=== PATIENT | female | born 1975 | race Caucasian/White ===

== ENCOUNTER 2024-03-10 07:25 | Emergency (ER) | payer MEDICAID ==
[~2024-03-10] VITALS: Ht 160 cm; Wt 57.5 kg
[2024-03-10 08:32] VITALS: BP 122/63; PULSE 92; RESP 18; TEMP 99.5; O2SAT 95
[2024-03-10] MEDS ORDERED: METH4PAK PO (09:00)
[2024-03-10] MEDS ORDERED: PENI500T2 PO (09:00)
[2024-03-10] MEDS ORDERED: IBUP1TAB5 PO (09:00)
== END 2024-03-10 09:00 | disposition home or self-care (01) ==
LOC: ER 07:25
DX: J02.9 Acute pharyngitis, unspecified (principal); Z90.49 Acquired absence of other specified parts of digestive tract; Z90.710 Acquired absence of both cervix and uterus; Z87.891 Personal history of nicotine dependence; Z88.6 Allergy status to analgesic agent

== ENCOUNTER 2025-01-11 09:19 | Inpatient (IN) | payer MEDICAID ==
[~2025-01-11] VITALS: Ht 160 cm; Wt 64.3 kg
[~2025-01-11 09:19] MED LIST: METH4PAK PO; PENI500T2 PO
[2025-01-11] MEDS: SODIUM CHLORIDE 0.9% 1,000 ML IV ONE ×2 (10:00→15:45)
--- NOTE | 2025-01-11 10:15 | ED.PDOC ---
GI ASSESSMENT HPI Comments 49 y/o F, presents to the ED for CC of constipation. Patient states, she has been experiencing symptoms of constipation with associated abdominal pain onset, last night (01/10/25). Patient reports, that she was scheduled to have a colonoscopy today (01/11/25) and started drinking Go-Yenny last night (01/10/25) and has yet to have bowel movement. Patient denies nausea, vomiting, fever, chills, or body aches. No other symptoms or modifying factors present at this time. Chief Complaint: Constipation Time Seen by MD: 10:00 Primary Care Provider: Ap Reviewed Notes: Nurses Notes, Medications, Allergies Allergies: Coded Allergies: Ibuprofen (Verified Allergy, Unknown, 12/12/23) Morphine (Verified Allergy, Unknown, 12/12/23) Home Meds Active Scripts Methylprednisolone (Medrol Dosepak) 4 Mg Riaz, 4 MG PO UD for 7 Days, #21 TAB 0 Refills UAD Prov:GROVER MONTENEGRO MOLTEN IRON POURER 03/10/24 Penicillin V Potassium (Veetids) 500 Mg Tab, 1 TAB PO BID for 10 Days, #20 TAB 0 Refills Prov:GROVER MONTENEGRO MOLTEN IRON POURER 03/10/24 Information Source: Patient Mode of Arrival: Ambulatory Timing: Hours Duration: Since onset Prehospital treatment: None Quality: None Vomitus: None Stool: Impaction Severity: Moderate Recent: None Recent Hx of: None Pain Location: Diffuse Modifying Factors: Nothing Associated sign and symptoms: Abdominal Pain Past Medical History PAST MEDICAL HISTORY: Seizures Surgical History: Cholecystectomy, Hysterectomy 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: 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 all KILN MECHANIC Hx Family History Family History: Reviewed,noncontributory to illness, Family hx of Cancer Family History (Other): Crohn's Disease Social History Smoker: Quit Greater Than 1 Year, Cigarettes Alcohol: Denies ETOH Use Drugs: Denies Drug Use Lives In: Home Constitutional: denies: chills, diaphoresis, fatigue, fever, malaise, sweats, weakness, others EENTM: denies: blurred vision, double vision, ear bleeding, ear discharge, ear drainage, ear pain, ear ringing, eye pain, eye redness, hearing loss, mouth pain, mouth swelling, nasal discharge, nose bleeding, nose congestion, nose pain, photophobia, tearing, throat pain, throat swelling, voice changes, others Respiratory: denies: cough, hemoptysis, orthopnea, SOB at rest, shortness of breath, SOB with excertion, stridor, wheezing, others Cardiovascular: denies: chest pain, dizzy spells, diaphoresis, Dyspnea on exertion, edema, irregular heart beat, left arm pain, lightheadedness, palpitations, PND, syncope, others Gastrointestinal: reports: abdominal pain, constipated; denies: abdomen distended, blood streaked bowels, diarrhea, dysphagia, difficulty swallowing, hematemesis, melena, nausea, poor appetite, poor fluid intake, rectal bleeding, rectal pain, vomiting, others Genitourinary: denies: abnormal vagina bleeding, burning, dyspareunia, dysuria, flank pain, frequency, hematuria, incontinence, pain, , vagina discharge, urgency, others Neurological: denies: dizziness, fainting, headache, left sided numbness, left sided weakness, numbness, paresthesia, pre-existing deficit, right sided numbness, right sided weakness, seizure, speech problems, tingling, tremors, weakness, others Musculoskeletal: denies: back pain, gout, joint pain, joint swelling, muscle pain, muscle stiffness, neck pain, others Integumetry: denies: bruises, change in color, change in hair/nails, dryness, laceration, lesions, lumps, rash, wounds, others Allergic/Immunocompromised: denies: Difficulty Healing, Frequent Infections, Hives, Itching, others Hematologic/Lymphatic: denies: anemia, blood clots, easy bleeding, easy bruising, swollen glands, others Endocrine: denies: excessive hunger, excessive sweating, excessive thirst, excessive urination, flushing, intolerance to cold, intolerance to heat, unexplained weight gain, unexplained weight loss, others Psychiatric: denies: anxiety, bipolar disorder, depression, hopeless, panic disorder, schizophrenia, sleepless, suicidal, others All Other Systems: Reviewed and Negative Physical Exam General Appearance: Moderate Distress HEENT: Normal ENT Inspection, Pharynx Normal, TMs Normal Neck: Full Range of Motion, Non-Tender, Normal, Normal Inspection Respiratory: Chest Non-Tender, Lungs Clear, No Accessory Muscle Use, No Respi ratory Distress, Normal Breath Sounds Cardiovascular: No Edema, No JVD, No Murmur, No Gallop, Normal Peripheral Pulses, Regular Rate/Rhythm Breast Exam: Deferred Gastrointestinal: Diffuse, No Organomegaly, No Pulsatile Mass, Normal Bowel Sounds, Soft Genitalia: Deferred Pelvic: Deferred Rectal: Deferred Extremities: No calf tenderness, Normal capillary refill, Normal inspection, Normal range of motion, Non-tender, No pedal edema Musculoskeletal : Apperance: Normal 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 Was a procedure done?: No GI differential Dx Differential Diagnosis: Constipation, Diverticular disease, Esophagitis, Gastritis/PUD, Gastroenteritis X-Ray, Labs, Meds, VS Vital Signs Date Time Temp Pulse Resp B/P (MAP) Pulse Ox O2 Delivery O2 Flow Rate FiO2 01/11/25 14:04 70 18 119/57 (77) 100 01/11/25 10:17 61 18 98 Room Air 01/11/25 10:17 98.0 61 18 125/61 (82) 98 98.0 01/11/25 09:35 98.3 70 19 119/67 (84) 96 98.3 Lab Test 01/11/25 13:50 01/11/25 10:10 Range/Units Urine Color Light-yellow Yellow Urine Clarity Clear Clear Urine pH 6.0 5.0-9.0 Urine Specific [place] 1.016 1.001-1.035 Urine Protein Negative Negative Urine Ketones Negative Negative Urine Blood Negative Negative /uL Urine Nitrite Negative Negative Urine Bilirubin Negative Negative Urine Urobilinogen Normal Negative mg/dL Urine Leukocyte Esterase Negative Negative /uL Urine RBC <1 0 - 4 /hpf Urine Microscopic WBC < 1 0-5 /HPF Urine Squamous Epithelial Cells None seen <5 /hpf Urine Bacteria None seen None Seen /hpf Urine Glucose Normal Normal mg/dL White Blood Count 5.8 4.4-10.8 10^3/uL Red Blood Count 4.46 4.0-5.20 10^6/uL Hemoglobin 14.6 12.2-16.2 g/dL Hematocrit 42.0 36.0-46.0 % Mean Corpuscular Volume 94.2 80.0-100.0 fL Mean Corpuscular Hemoglobin 32.7 H 28.0-32.0 pg Mean Corpuscular Hemoglobin Concent 34.7 32.0-36.0 g/dL Red Cell Distribution Width 12.6 11.8-14.3 % Platelet Count 242 140-450 10^3/uL Mean Platelet Volume 8.9 6.9-10.8 fL Neutrophils (%) (Auto) 57.3 37.0-80.0 % Lymphocytes (%) (Auto) 33.2 10.0-50.0 % Monocytes (%) (Auto) 7.4 0.0-12.0 % Eosinophils (%) (Auto) 1.7 0.0-7.0 % Basophils (%) (Auto) 0.4 0.0-2.0 % Neutrophils # (Auto) 3.3 1.6-8.6 10 ^3/uL Lymphocytes # (Auto) 1.9 0.4-5.4 10 ^3/uL Monocytes # (Auto) 0.4 0-1.3 10 ^3/uL Eosinophils # (Auto) 0.1 0-0.8 10 ^3/uL Basophils # (Auto) 0 0-0.2 10 ^3/uL Nucleated Red Blood Cells 0.1 % Sodium Level 142 136-145 mmol/L Potassium Level 4.7 3.5-5.1 mmol/L Chloride Level 108 H 98-107 mmol/L Carbon Dioxide Level 26 20-31 mmol/L Anion Gap 8 5-15 Blood Urea Nitrogen 14 9-23 mg/dL Creatinine 1.05 H 0.550-1.02 mg/dL Glomerular Filtration Rate Calc 66 >90 mL/min BUN/Creatinine Ratio 13.3 10.0-20.0 Serum Glucose 81 74-106 mg/dL Calcium Level 11.6 H 8.7-10.4 mg/dL Current Medications Medications (Trade) Dose Ordered Sig/Mustapha Route Start Time Stop Time Status Last Admin Sodium Chloride 1,000 ml @ 1,000 mls/hr Q1H ONCE IV 01/11/25 10:00 01/11/25 10:59 DC 01/11/25 10:[address] [address] Ph: [phone] DIAGNOSTIC IMAGING Diagnostic Imaging Report : [id number] Signed PATIENT: UVALDO STERLING DIANEACCT: [id number] UNIT: [id number] : 1975 LOC: ER ROOM / BED: / AGE / SEX: 49 / F ADM STATUS: REG ER SERVICE 1000 ORDERING PHYSICIAN: FRANCINE CASTILLO MD PROCEDURE(s): ABPL - CT AB PEL WO CON-NO ORAL OR IV REASON: constipation ORDER NUMBER(s): [id number], ACCESSION NUMBER(s): [id number] Exam: CT CT AB PEL WO CON-NO ORAL OR IV History: constipation Comparison Study: None Technique: Multidetector spiral CT of the abdomen and pelvis was performed from lung bases to pubic symphysis. Imaging was performed without IV contrast. Axial, coronal and sagittal multiplanar reformats were obtained from the axial data set by the technologist. Radiation dose : Abdomen/Pelvis: CTDIvol 6.77 mGy, DLP 344.35 mGy*cm. Findings: Evaluation of solid organs is limited due to lack of intravenous contrast use. Lung Bases: Extensive cystic changes in the lung bases. Liver: Subcentimeter fatty lesions in the liver. Gallbladder and biliary Tree: Gallbladder is surgically absent. Spleen: Calcified granuloma. Pancreas: The pancreas is grossly normal in appearance. Adrenal Glands: Unremarkable Kidneys: Numerous fatty masses replacing most of both kidneys right greater than left consistent with angiomyolipoma. Largest masses an exophytic mass projecting off the lower pole of the left kidney measuring up to 78 mm. Some likely hyperdense renal cysts greater in the left kidney. No hydronephrosis. Bladder: Grossly unremarkable for degree of distention. Bowel: The stomach is grossly normal in appearance. Small bowel and colon are normal in caliber and distribution. Normal appendix is visualized in the right lower quadrant without findings of appendicitis. Ascites: Absent Lymphadenopathy: No mesenteric, retroperitoneal or periportal lymphadenopathy. Abdominal wall and Mesentery: Unremarkable. Vasculature: The visualized abdominal aorta is normal in size and caliber. Eval uation of abdominal and pelvic vessels is limited due to lack of intravenous contrast. Pelvic Organs: Unremarkable Musculoskeletal: No aggressive focal bony lesions, acute fractures or dislocation. IMPRESSION: 1. Extensive cystic changes in the lung bases. Numerous bilateral renal angiomyolipoma. Largest renal mass is exophytic off the left lower pole measuring up to 78 mm. 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 Clinical correlation and continued follow-up is recommended. Consider surgical resection of the largest mass due to risk of hemorrhage. 2. Likely hyperdense renal cysts greater in the left kidney. Consider further evaluation with MRI of the abdomen with contrast. 3. Subcentimeter fatty lesions in the liver, likely benign. Could also be further evaluated on MRI of the abdomen with contrast. Radiation optimization: All CT scans at this facility use at least one of these dose optimization techniques: Automated exposure control mA and/or kV adjustment per patient size (includes targeted exams where dose is matched to clinical indication) or iterative reconstruction. HS:Y ATED BY: JAH ODONNELL MD DICTATED DATE/TIME: 01/11/25 1140 SIGNED BY: AJH ODONNELL MD SIGNED DATE/TIME: 01/11/25 1140 CC: Patient alert. Complaining of abdominal pain. She has been taking GoLYTELY to have a colonoscopy done today. Vitals stable. Unable to get her scope because of severe abdominal pain unable to have any bowel movement. She does have a history of GI dysfunction. WBC within normal limits. Hemoglobin within normal limits. Establish intravenous access. Was given fluids. Continue to monitor. CT scan of the abdomen reviewed does not show any acute changes rather chronic changes especially involving the lungs kidney. Time of 1ST Reevaluation: 10:30 Reevaluation 1ST: Unchanged Patient Education/Counseling: Diagnosis, Treatment Family Education/Counseling: No Family Present SEPSIS Sepsis Screen Date sepsis recognized/suspect: Jan 11, 2025 Time Sepsis recognized/suspect: 09 Recent Procedure: No On Antibiotic Therapy: No Respiratory Rate >20: No Heart Rate >90: No Temp<36 C (96.8 F) or >38.3 C: No SBP <90 or MAP <65 mmHG: No New Acute Mental Status Change: No Is the patient on CPAP, BIPAP,: No Physician Orders Ct Ab Pel Wo Con-No Oral Or Iv (01/11/25 10:00) Vital Signs Date Time Temp Pulse Resp B/P (MAP) Pulse Ox O2 Delivery O2 Flow Rate FiO2 01/11/25 14:04 70 18 119/57 (77) 100 01/11/25 10:17 61 18 98 Room Air 01/11/25 10:17 98.0 61 18 125/61 (82) 98 98.0 01/11/25 09:35 98.3 70 19 119/67 (84) 96 98.3 Laboratory Tests Test 01/11/25 10:10 White Blood Count 5.8 10^3/uL (4.4-10.8) Medications Medications Dose Ordered Sig/Mustapha Route Start Time Stop Time Status Last Admin Dose Admin Sodium Chloride 1,000 ml @ 1,000 mls/hr Q1H ONCE IV 01/11/25 10:00 01/11/25 10:59 DC 01/11/25 10:00 Departure 1 Departure Time of Disposition: 10:47 Impression: Primary Impression: Acute abdominal pain Disposition: ADMITTED INPATIENT Admit to: Med Surg Condition: Guarded Critical Care Note Critical Care Time?: No Stability Stability form required: No Heart Score Heart Score: Heart Score Response (Comments) Value History N/A 0 EKG N/A 0 Age N/A 0 Risk Factors N/A 0 Troponin N/A 0 Total 0 I personally scribed for FRANCINE CASTILLO MD ([email or web address]) on 01/11/25 at 10:15. Electronically submitted by Yadi Lorenz ([email or web address]). I personally scribed for FRANCINE CASTILLO MD ([email or web address]) on 01/11/25 at 11:49. Electronically submitted by Yadi Lorenz ([email or web address]). FRANCINE CASTILLO MD Jan 11, 2025 10:15
[2025-01-11 10:30] LABS: Basophils # (auto) 0 10 ^3/uL (0-0.2); Basophils % (auto) 0.4 % (0.0-2.0); Eosinophils # (auto) 0.1 10 ^3/uL (0-0.8); Eosinophils % (auto) 1.7 % (0.0-7.0); Hemoglobin 14.6 g/dL (12.2-16.2); Lymphocytes # (auto) 1.9 10 ^3/uL (0.4-5.4); Lymphocytes % (auto) 33.2 % (10.0-50.0); Mean Corpuscular Hemoglobin 32.7 pg (28.0-32.0); Mean Corpuscular Hgb Conc. 34.7 g/dL (32.0-36.0); Mean Corpuscular Volume 94.2 fL (80.0-100.0); Monocytes # (auto) 0.4 10 ^3/uL (0-1.3); Monocytes % (auto) 7.4 % (0.0-12.0); Neutrophils # (auto) 3.3 10 ^3/uL (1.6-8.6); Neutrophils % (auto) 57.3 % (37.0-80.0); Nucleated Red Blood Cells % 0.1 %; Platelet Count (auto) 242 10^3/uL (140-450); Red Blood Cells 4.46 10^6/uL (4.0-5.20); Red Cell Distribution Width 12.6 % (11.8-14.3); White Blood Cell 5.8 10^3/uL (4.4-10.8)
[2025-01-11 10:37] LABS: Potassium 4.7 mmol/L (3.5-5.1); Sodium 142 mmol/L (136-145)
[2025-01-11 10:38] LABS: Anion Gap 8 (5-15); Carbon Dioxide 26 mmol/L (20-31)
[2025-01-11 10:39] LABS: Calcium 11.6 mg/dL (8.7-10.4); Chloride 108 mmol/L (98-107)
[2025-01-11 10:43] LABS: BUN/Creatinine Ratio 13.3 (10.0-20.0); Blood Urea Nitrogen 14 mg/dL (9-23); Glucose 81 mg/dL (74-106)
--- NOTE | 2025-01-11 11:42 | DVH ---
Exam: CT CT AB PEL WO CON-NO ORAL OR IV History: constipation Comparison Study: None Technique: Multidetector spiral CT of the abdomen and pelvis was performed from lung bases to pubic symphysis. Imaging was performed without IV contrast. Axial, coronal and sagittal multiplanar reform ats were obtained from the axial data set by the technologist. Radiation dose : Abdomen/Pelvis: CTDIvol 6.77 mGy, DLP 344.35 mGy*cm. Findings: Evaluation of solid organs is limited due to lack of intravenous contrast use. Lung Bases: Extensive cystic changes in the lung bases. Liver: Subcentimeter fatty lesions in the liver. Gallbladder and biliary Tree: Gallbladder is surgically absent. Spleen: Calcified granuloma. Pancreas: The pancreas is grossly normal in appearance. Adrenal Glands: Unremarkable Kidneys: Numerous fatty masses replacing most of both kidneys right greater than left consistent with angiomyolipoma. Largest masses an exophytic mass projecting off the lower pole of the left kidney me asuring up to 78 mm. Some likely hyperdense renal cysts greater in the left kidney. No hydronephrosis . Bladder: Grossly unremarkable for degree of distention. Bowel: The stomach is grossly normal in appearance. Small bowel and colon are normal in caliber and d istribution. Normal appendix is visualized in the right lower quadrant without findings of appendicit is. Ascites: Absent Lymphadenopathy: No mesenteric, retroperitoneal or periportal lymphadenopathy. Abdominal wall and Mesentery: Unremarkable. Vasculature: The visualized abdominal aorta is normal in size and caliber. Evaluation of abdominal a nd pelvic vessels is limited due to lack of intravenous contrast. Pelvic Organs: Unremarkable Musculoskeletal: No aggressive focal bony lesions, acute fractures or dislocation. IMPRESSION: 1. Extensive cystic changes in the lung bases. Numerous bilateral renal angiomyolipoma. Largest alec l mass is exophytic off the left lower pole measuring up to 78 mm. 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 Cl inical correlation and continued follow-up is recommended. Consider surgical resection of the largest mass due to risk of hemorrhage. 2. Likely hyperdense renal cysts greater in the left kidney. Consider further evaluation with MRI of the abdomen with contrast. 3. Subcentimeter fatty lesions in the liver, likely benign. Could also be further evaluated on MRI of the abdomen with contrast. Radiation optimization: All CT scans at this facility use at least one of these dose optimization yuniel hniques: Automated exposure control mA and/or kV adjustment per patient size (includes targeted exams where dose is matched to clinical indication) or iterative reconstruction. HS:Y
[2025-01-11 13:51] LABS: Urine Bacteria None Seen /hpf (None Seen)
[2025-01-11 14:19] LABS: Urine Blood Negative /uL (Negative); Urine Clarity Clear (Clear); Urine Color Light-Yellow (Yellow); Urine Protein, UAD Negative (Negative); Urine Specific Gravity 1.016 (1.001-1.035); Urine Squamous Epithelial Cell None Seen /hpf (<5); Urine Urobilinogen Normal (Negative); Urine WBC < 1 /HPF (0-5)
[2025-01-11] MEDS ORDERED: DIVA1TAB59 PO (15:07)
[2025-01-11] MEDS ORDERED: MAGN241.4 PO (15:07)
[2025-01-11] MEDS ORDERED: ERGO1CAP12 PO (15:07)
[2025-01-11] MEDS: GLYCERIN ADULT RECTAL SUPP PR ONE (15:15)
[2025-01-11] MEDS: FLEET ENEMA(ADULT) 135 ML PR ONE (15:45)
[2025-01-11] MEDS: METOCLOPRAMIDE HCL 5MG/ml INJ 2ml VIAL IV ONE (15:45)
--- NOTE | 2025-01-11 15:45 | DVHHP2 ---
History of Present Illness Reason for Visit: Constipation History of Present Illness Hannah Castillo is a 49-year-old female with past medial history of seizures, and tuberous sclerosis, who came to the hospital due to constipation. Patient states she has had GI issues since 2018. She was scheduled for a colonoscopy today at 1300. She started her prep yesterday and make it half way through the bottle, but has not had a bowel movement, so she came to the hospital. 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 Smoke: No ALCOHOL: none Drugs: None Lives: with Family Domestic Violence: Neg Review of Systems Constitutional: No: Fever, Chills, Sweats, Weakness, Malaise, Other Eyes: No: Pain, Vision change, Conjunctivae inflammation, Eyelid inflammation, Other, Redness ENT: No: Ear pain, Ear discharge, Nose pain, Nose discharge, Nose congestion, Mouth pain, Mouth swelling, Throat pain, Throat swelling, Other Respiratory: No: Cough, Dry, Shortness of breath, SOB with excertion, Wheezing, Hemoptysis, Pleuritic Pain, Sputum, Wheezing, Other Cardiovascular: No: Chest Pain, Palpitations, Orthopnea, Paroxysmal Noc. Dyspnea, Edema, Lt Headedness, Other Gastrointestinal: Abdominal Pain, Constipation; No: Nausea, Vomiting, Diarrhea, Melena, Hematochezia, Other Genitourinary: No Dysuria, No Frequency, No Incontinence, No Hematuria, No Retention, No Other Musculoskeletal: No: other, neck pain, shoulder pain, arm pain, back pain, hand pain, leg pain, foot pain Skin: No: Rash, Lesions, Jaundice, Bruising, Other Neurological: No: Weakness, Numbness, Incoordination, Change in speech, Confusion, Seizures, Other Allergies: Coded Allergies: Ibuprofen (Verified Allergy, Unknown, 12/12/23) Morphine (Verified Allergy, Unknown, 12/12/23) Medications Current Medications Medications Dose Ordered Sig/Mustapha Route Start Time Stop Time Status Last Admin Dose Admin Acetaminophen/ Hydrocodone Bitart 1 tab Q4HP PRN PO 01/11/25 15:15 UNV Ondansetron HCl 4 mg Q4HP PRN IV 01/11/25 15:15 UNV Docusate Sodium 100 mg BIDPRN PRN PO 01/11/25 15:15 UNV Acetaminophen 650 mg Q6HP PRN PO 01/11/25 15:15 UNV Exam Vital Signs Vital Signs Date Time Temp Pulse Resp B/P (MAP) Pulse Ox O2 Delivery O2 Flow Rate FiO2 01/11/25 14:04 70 18 119/57 (77) 100 01/11/25 10:17 Room Air 01/11/25 10:17 98.0 98.0 General Appearance: Alert, Oriented X3, Cooperative, mild distress HEENT: Atraumatic, PERRLA Respiratory: Clear to auscultation, Normal air movement Cardiovascular: Regular rate, Normal S1, Normal S2, No murmurs Abdominal: Other (hypoactive bowel sounds) Extremities: No clubbing, No cyanosis, No edema, Normal pulses, No tenderness/swelling Skin: No rashes, No breakdown, No significant lesion Neuro: Normal gait, Normal speech, Strength at 5/5 X4 ext, Normal tone Psych/Mental Status: Mental status NL, Mood NL Labs/Xrays Labs Test 01/11/25 13:50 01/11/25 10:10 Range/Units Urine Color Light-yellow Yellow Urine Clarity Clear Clear Urine pH 6.0 5.0-9.0 Urine Specific [place] 1.016 1.001-1.035 Urine Protein Negative Negative Urine Ketones Negative Negative Urine Blood Negative Negative /uL Urine Nitrite Negative Negative Urine Bilirubin Negative Negative Urine Urobilinogen Normal Negative mg/dL Urine Leukocyte Esterase Negative Negative /uL Urine RBC <1 0 - 4 /hpf Urine Microscopic WBC < 1 0-5 /HPF Urine Squamous Epithelial Cells None seen <5 /hpf Urine Bacteria None seen None Seen /hpf Urine Glucose Normal Normal mg/dL White Blood Count 5.8 4.4-10.8 10^3/uL Red Blood Count 4.46 4.0-5.20 10^6/uL Hemoglobin 14.6 12.2-16.2 g/dL Hematocrit 42.0 36.0-46.0 % Mean Corpuscular Volume 94.2 80.0-100.0 fL Mean Corpuscular Hemoglobin 32.7 H 28.0-32.0 pg Mean Corpuscular Hemoglobin Concent 34.7 32.0-36.0 g/dL Red Cell Distribution Width 12.6 11.8-14.3 % Platelet Count 242 140-450 10^3/uL Mean Platelet Volume 8.9 6.9-10.8 fL Neutrophils (%) (Auto) 57.3 37.0-80.0 % Lymphocytes (%) (Auto) 33.2 10.0-50.0 % Monocytes (%) (Auto) 7.4 0.0-12.0 % Eosinophils (%) (Auto) 1.7 0.0-7.0 % Basophils (%) (Auto) 0.4 0.0-2.0 % Neutrophils # (Auto) 3.3 1.6-8.6 10 ^3/uL Lymphocytes # (Auto) 1.9 0.4-5.4 10 ^3/uL Monocytes # (Auto) 0.4 0-1.3 10 ^3/uL Eosinophils # (Auto) 0.1 0-0.8 10 ^3/uL Basophils # (Auto) 0 0-0.2 10 ^3/uL Nucleated Red Blood Cells 0.1 % Sodium Level 142 136-145 mmol/L Potassium Level 4.7 3.5-5.1 mmol/L Chloride Level 108 H 98-107 mmol/L Carbon Dioxide Level 26 20-31 mmol/L Anion Gap 8 5-15 Blood Urea Nitrogen 14 9-23 mg/dL Creatinine 1.05 H 0.550-1.02 mg/dL Glomerular Filtration Rate Calc 66 >90 mL/min BUN/Creatinine Ratio 13.3 10.0-20.0 Serum Glucose 81 74-106 mg/dL Calcium Level 11.6 H 8.7-10.4 mg/dL Exam: CT CT AB PEL WO CON-NO ORAL OR IV Findings: Evaluation of solid organs is limited due to lack of intravenous contrast use. Lung Bases: Extensive cystic changes in the lung bases. Liver: Subcentimeter fatty lesions in the liver. Gallbladder and biliary Tree: Gallbladder is surgically absent. Spleen: Calcified granuloma. Pancreas: The pancreas is grossly normal in appearance. Adrenal Glands: Unremarkable Kidneys: Numerous fatty masses replacing most of both kidneys right greater than left consistent with angiomyolipoma. Largest masses an exophytic mass projecting off the lower pole of the left kidney measuring up to 78 mm. Some likely hyperdense renal cysts greater in the left kidney. No hydronephrosis. Bladder: Grossly unremarkable for degree of distention. Bowel: The stomach is grossly normal in appearance. Small bowel and colon are normal in caliber and distribution. Normal appendix is visualized in the right lower quadrant without findings of appendicitis. Ascites: Absent Lymphadenopathy: No mesenteric, retroperitoneal or periportal lymphadenopathy. Abdominal wall and Mesentery: Unremarkable. Vasculature: The visualized abdominal aorta is normal in size and caliber. Evaluation of abdominal and pelvic vessels is limited due to lack of intravenous contrast. Pelvic Organs: Unremarkable Musculoskeletal: No aggressive focal bony lesions, acute fractures or dislocation. IMPRESSION: 1. Extensive cystic changes in the lung bases. Numerous bilateral renal angiomyolipoma. Largest renal mass is exophytic off the left lower pole measuring up to 78 mm. 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 Clinical correlation and continued follow-up is recommended. Consider surgical resection of the largest mass due to risk of hemorrhage. 2. Likely hyperdense renal cysts greater in the left kidney. Consider further evaluation with MRI of the abdomen with contrast. 3. Subcentimeter fatty lesions in the liver, likely benign. Could also be further evaluated on MRI of the abdomen with contrast. Assessment/Plan Assessment/Plan Assessment: Constipation, tuberous sclerosis, Seizures, Plan: Admit to Med-Surg, Consider GI consult if symptoms persist, Suppository, Enema as needed, IV hydration, Pain management, Antiemetics as needed, Seizure precautions, Home medications reconciled, Plan discussed with: Patient My Orders Orders - NATALIO WU CAR PILOT Procedure Category Date Status Time Admit ADMIT 01/11/25 Transmitted 15:02 Code Status CODE 01/11/25 Transmitted 15:02 Hydrocodone-Acet PHA 01/11/25 Logged 5/325mg Tab ([place] 15:15 Ondansetron Hcl PHA 01/11/25 Logged (Zofran) 15:15 Docusate Sodium PHA 01/11/25 Logged Capsule (Colace 15:15 Complete Blood Count LAB 01/12/25 Verified 04:00 Comprehensive LAB 01/12/25 Verified Metabolic Panel 04:00 Condition: Serious JUAN 01/11/25 In Process 15:02 Acetaminophen Tablet PHA 01/11/25 Logged (Tylenol Tablet) 15:15 Clear Liq Diet DIET 01/11/25 Transmitted Dinner Glycerin Adult PHA 01/11/25 Logged Suppository (Glycerin 15:15 (Nf) Divalproex PHA 01/11/25 Verified Sodium (Divalproex 22:00 (Nf) Magnesium Oxide PHA 01/12/25 Verified (Mag-Ox) 10:00 Date of Service: Jan 11, 2025 Billing Provider: NATALIO WU Common Visit Codes: [id number] INP/OBS CARE (MOD) NATALIO WU Jan 11, 2025 15:45
[2025-01-11] MEDS: ONDANSETRON HCL 4 MG/2 ML VIAL IV PRN (16:04)
[2025-01-11] MEDS: DOCUSATE SOD 100 MG CAP PO PRN (22:48)
[2025-01-11] MEDS: HYDROcodone-ACET 5/325MG TAB PO PRN (22:51)
[2025-01-11] MEDS: ACETAMINOPHEN 325 MG TAB PO PRN (22:53)
[2025-01-12] VITALS (8 sets, daily range): BP systolic 103–126; BP diastolic 58–74; PULSE 54–67; RESP 18–20; TEMP 97.8–98.9; O2SAT 93–99
[2025-01-12 06:31] LABS: Basophils # (auto) 0 10 ^3/uL (0-0.2); Basophils % (auto) 0.8 % (0.0-2.0); Eosinophils # (auto) 0.1 10 ^3/uL (0-0.8); Eosinophils % (auto) 2.7 % (0.0-7.0); Hematocrit 41.9 % (36.0-46.0); Hemoglobin 14.6 g/dL (12.2-16.2); Lymphocytes # (auto) 1.9 10 ^3/uL (0.4-5.4); Lymphocytes % (auto) 43.1 % (10.0-50.0); Mean Corpuscular Hemoglobin 32.9 pg (28.0-32.0); Monocytes # (auto) 0.3 10 ^3/uL (0-1.3); Monocytes % (auto) 7.3 % (0.0-12.0); Neutrophils % (auto) 46.1 % (37.0-80.0); Nucleated Red Blood Cells % 0.2 %; Platelet Count (auto) 244 10^3/uL (140-450); Red Blood Cells 4.45 10^6/uL (4.0-5.20); Red Cell Distribution Width 12.4 % (11.8-14.3); White Blood Cell 4.5 10^3/uL (4.4-10.8)
[2025-01-12 06:58] LABS: Alanine Aminotransferase 10 U/L (7-40); Albumin 4.5 g/dL (3.2-4.8); Alkaline Phosphatase 99 U/L (46-116); Anion Gap 8 (5-15); Aspartate Aminotransferase 15 U/L (<34); BUN/Creatinine Ratio 13.1 (10.0-20.0); Blood Urea Nitrogen 14 mg/dL (9-23); Calcium 10.4 mg/dL (8.7-10.4); Carbon Dioxide 24 mmol/L (20-31); Glucose 86 mg/dL (74-106); Potassium 4.4 mmol/L (3.5-5.1); Sodium 139 mmol/L (136-145)
[2025-01-12 06:59] LABS: Bilirubin, Total 0.6 mg/dL (0.2-1.0)
[2025-01-12 07:01] LABS: Chloride 107 mmol/L (98-107)
[2025-01-12] MEDS: MAGNESIUM OXIDE 400 MG TAB PO SCH (09:45)
[2025-01-12] MEDS ORDERED: PATIENTS OWN MEDICATION (Magnesium Oxide (Mag-Ox) 1 TAB) PO SCH (10:00)
[2025-01-12 11:05] LABS: Hepatitis B Surface Antigen Negative (Negative); Hepatitis C Antibody Negative (Negative)
--- NOTE | 2025-01-12 12:56 | DVHPN2 ---
Reviewed: Care Plan, H&P, Labs, Medications, Previous Orders, Radiology Changes from previous H/P or p: No Changes Eyes: No Pain, No Vision change, No Conjunctivae inflammation, No Eyelid inflammation, No Other, No Redness ENT: No Ear pain, No Ear discharge, No Nose pain, No Nose discharge, No Nose congestion, No Mouth pain, No Mouth swelling, No Throat pain, No Throat swelling, No Other Cardiovascular: No Chest Pain, No Palpitations, No Orthopnea, No Paroxysmal Noc. Dyspnea, No Edema, No Lt Headedness, No Other Respiratory: No Cough, No Dry, No Shortness of breath, No SOB with excertion, No Wheezing, No Hemoptysis, No Pleuritic Pain, No Sputum, No Other Gastrointestinal: No Nausea, No Vomiting; Abdominal Pain; No Diarrhea; C onstipation; No Melena, No Hematochezia, No Other Genitourinary: No Dysuria, No Frequency, No Incontinence, No Hematuria, No Retention, No Other Musculoskeletal: No other, No neck pain, No shoulder pain, No arm pain, No back pain, No hand pain, No leg pain, No foot pain Skin: No Rash, No Lesions, No Jaundice, No Bruising, No Other Objective Vitals Vital Signs Date Time Temp Pulse Resp B/P (MAP) Pulse Ox O2 Delivery O2 Flow Rate FiO2 01/12/25 09:14 97.8 60 18 103/67 (79) 95 97.8 01/12/25 03:43 Room Air* 0 21 Intake/Output Intake and Output 01/12/25 06:59 Intake Total 0 ml Output Total 0 ml Balance 0 ml Intake Oral 0 ml Output Urine Total 0 ml # Bowel Movements 3 Medications Current Medications Medications Dose Ordered Sig/Mustapha Route Start Time Stop Time Status Last Admin Dose Admin Acetaminophen/ Hydrocodone Bitart 1 tab Q4HP PRN PO 01/11/25 15:15 01/12/25 03:27 1 TAB Ondansetron HCl 4 mg Q4HP PRN IV 01/11/25 15:15 01/12/25 02:01 4 MG Docusate Sodium 100 mg BIDPRN PRN PO 01/11/25 15:15 01/11/25 22:48 100 MG Acetaminophen 650 mg Q6HP PRN PO 01/11/25 15:15 01/11/25 22:53 650 MG Patient Own Medication 1 tab DAILY PO 01/12/25 10:00 UNV Magnesium Oxide 400 mg DAILY PO 01/12/25 10:00 01/12/25 09:45 400 MG Metoclopramide HCl 10 mg Q8HPRN PRN IV 01/11/25 22:00 Divalproex Sodium 500 mg BID PO 01/12/25 10:00 01/12/25 09:45 500 MG Laboratory Results Laboratory Tests 01/12/25 06:13 Chemistry Test 01/12/25 06:13 Albumin 4.5 g/dL (3.2-4.8) Calcium Level 10.4 mg/dL (8.7-10.4) Total Protein 7.0 g/dL (5.7-8.2) LFT Test 01/12/25 06:13 Alanine Aminotransferase (ALT) 10 U/L (7-40) Alkaline Phosphatase 99 U/L (46-116) Aspartate Amino Transferase (AST) 15 U/L (<34) Total Bilirubin 0.6 mg/dL (0.2-1.0) Urinalysis Test 01/11/25 13:50 Urine Color Light-yellow (Yellow) Urine Clarity Clear (Clear) Urine pH 6.0 (5.0-9.0) Urine Specific [place] 1.016 (1.001-1.035) Urine Protein Negative (Negative) Urine Ketones Negative (Negative) Urine Blood Negative /uL (Negative) Urine Nitrite Negative (Negative) Urine Bilirubin Negative (Negative) Urine Urobilinogen Normal mg/dL (Negative) Urine Leukocyte Esterase Negative /uL (Negative) Urine RBC <1 /hpf (0 - 4) Urine Microscopic WBC < 1 /HPF (0-5) Urine Squamous Epithelial Cells None seen /hpf (<5) Urine Bacteria None seen /hpf (None Seen) Urine Glucose Normal mg/dL (Normal) Labs and/or images reviewed: Labs reviewed by me, Image(s) reviewed by me Assessment/Plan Assessment/Plan Constipation: Colace Consult for GI Dr. Carlo Deshpande tuberous sclerosis, Seizures Depakote, Plan discussed with: Patient Date of Service: Jan 12, 2025 Billing Provider: NORA LUNDBERG MD Common Visit Codes: [id number] INP/OBS CARE(HIGH) NORA LUNDBERG MD Jan 12, 2025 12:56
--- NOTE | 2025-01-12 15:12 | DVHINCON2 ---
Date of service: Jan 12, [address] Ricco Nicolas Reason for Consultation Abdominal pain and constipation History of Present Illness Hannah Castillo is a 49-year-old female with past medial history of seizures, and tuberous sclerosis, who came to the hospital due to constipation. Patient states she has had GI issues since 2018. She also has family history of Crohn's disease. She was scheduled for a colonoscopy yesterday at 1300 with a gastro group. She started her prep yesterday and make it half way through the bottle, but had not had a bowel movement, so she came to the hospital. Patient was given a laxative over here and since then she has had multiple bowel movements. 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 Past Surgical History Hysterectomy Family History: FH: breast cancer aunt FH: lung cancer G8 MOTHER Allergies: Coded Allergies: Ibuprofen (Verified Allergy, Unknown, 12/12/23) Morphine (Verified Allergy, Unknown, 12/12/23) Home Meds Reported Medications Magnesium Oxide (Mag-Ox) 400 Mg Tb, 1 TAB PO DAILY 01/11/25 Ergocalciferol (Vitamin D) 50,000 Unit Cap, 1 CAP PO QWEEKLY 01/11/25 Divalproex Sodium (Divalproex Sodium Dr) 500 Mg Tab, 1 TAB PO BID 01/11/25 Discontinued Scripts Methylprednisolone (Medrol Dosepak) 4 Mg Riaz, 4 MG PO UD for 7 Days, #21 TAB 0 Refills [facility] Prov:GROVER MONTENEGRO NP 03/10/24 Penicillin V Potassium (Veetids) 500 Mg Tab, 1 TAB PO BID for 10 Days, #20 TAB 0 Refills Prov:GROVER MONTENEGRO [employer] TECHNICIAN 03/10/24 Current Medications Current Medications Medications (Trade) Dose Ordered Sig/Mustapha Route PRN Reason Start Time Stop Time Status Last Admin Acetaminophen/ Hydrocodone Bitart (Leslie 5/325MG Tab) 1 tab Q4HP PRN PO MODERATE PAIN (4-6 PAIN SCALE) 01/11/25 15:15 01/12/25 03:27 Ondansetron HCl (Zofran) 4 mg Q4HP PRN IV NAUSEA / VOMITING 01/11/25 15:15 01/12/25 02:01 Docusate Sodium (Colace Capsule) 100 mg BIDPRN PRN PO FOR CONSTIPATION 01/11/25 15:15 01/11/25 22:48 Acetaminophen (Tylenol Tablet) 650 mg Q6HP PRN PO PAIN SCALE 1-3 OR TEMP>100.4 01/11/25 15:15 01/11/25 22:53 Patient Own Medication 1 tab BID PO 01/11/25 22:00 01/11/25 23:00 DC Patient Own Medication 1 tab DAILY PO 01/12/25 10:00 UNV Magnesium Oxide (Mag-Ox Tablet) 400 mg DAILY PO 01/12/25 10:00 01/12/25 09:45 Metoclopramide HCl (Reglan Injection) 10 mg Q8HPRN PRN IV breakthrough NAUSEA / VOMITING 01/11/25 22:00 Divalproex Sodium (Depakote "Dr" Tablet) 500 mg BID PO 01/12/25 10:00 01/12/25 09:45 Vital Signs Vital Signs Date Time Temp Pulse Resp B/P (MAP) Pulse Ox O2 Delivery O2 Flow Rate FiO2 01/12/25 13:07 98.3 65 20 106/66 (79) 97 98.3 01/12/25 03:43 Room Air* 0 21 Physical Exam General Appearance: Alert, Oriented X3, Cooperative, mild distress HEENT: Atraumatic, PERRLA Respiratory: Clear to auscultation, Normal air movement Cardiovascular: Regular rate, Normal S1, Normal S2, No murmurs Abdominal: Soft nontender, slightly distended Extremities: No clubbing, No cyanosis, No edema, Normal pulses, No tenderness/swelling Skin: No rashes, No breakdown, No significant lesion Neuro: Normal gait, Normal speech, Strength at 5/5 X4 ext, Normal tone Psych/Mental Status: Mental status NL, Mood NL Labs/Diagnostic Data Labs Test 01/12/25 06:13 01/11/25 13:50 Range/Units White Blood Count 4.5 4.4-10.8 10^3/uL Red Blood Count 4.45 4.0-5.20 10^6/uL Hemoglobin 14.6 12.2-16.2 g/dL Hematocrit 41.9 36.0-46.0 % Mean Corpuscular Volume 94.0 80.0-100.0 fL Mean Corpuscular Hemoglobin 32.9 H 28.0-32.0 pg Mean Corpuscular Hemoglobin Concent 35.0 32.0-36.0 g/dL Red Cell Distribution Width 12.4 11.8-14.3 % Platelet Count 244 140-450 10^3/uL Mean Platelet Volume 8.8 6.9-10.8 fL Neutrophils (%) (Auto) 46.1 37.0-80.0 % Lymphocytes (%) (Auto) 43.1 10.0-50.0 % Monocytes (%) (Auto) 7.3 0.0-12.0 % Eosinophils (%) (Auto) 2.7 0.0-7.0 % Basophils (%) (Auto) 0.8 0.0-2.0 % Neutrophils # (Auto) 2.0 1.6-8.6 10 ^3/uL Lymphocytes # (Auto) 1.9 0.4-5.4 10 ^3/uL Monocytes # (Auto) 0.3 0-1.3 10 ^3/uL Eosinophils # (Auto) 0.1 0-0.8 10 ^3/uL Basophils # (Auto) 0 0-0.2 10 ^3/uL Nucleated Red Blood Cells 0.2 % Sodium Level 139 136-145 mmol/L Potassium Level 4.4 3.5-5.1 mmol/L Chloride Level 107 98-107 mmol/L Carbon Dioxide Level 24 20-31 mmol/L Anion Gap 8 5-15 Blood Urea Nitrogen 14 9-23 mg/dL Creatinine 1.07 H 0.550-1.02 mg/dL Glomerular Filtration Rate Calc 64 >90 mL/min BUN/Creatinine Ratio 13.1 10.0-20.0 Serum Glucose 86 74-106 mg/dL Calcium Level 10.4 8.7-10.4 mg/dL Total Bilirubin 0.6 0.2-1.0 mg/dL Aspartate Amino Transferase (AST) 15 <34 U/L Alanine Aminotransferase (ALT) 10 7-40 U/L Alkaline Phosphatase 99 46-116 U/L Total Protein 7.0 5.7-8.2 g/dL Albumin 4.5 3.2-4.8 g/dL Hepatitis B Surface Antigen Negative Negative Hepatitis C Antibody Negative Negative Urine Color Light-yellow Yellow Urine Clarity Clear Clear Urine pH 6.0 5.0-9.0 Urine Specific [place] 1.016 1.001-1.035 Urine Protein Negative Negative Urine Ketones Negative Negative Urine Blood Negative Negative /uL Urine Nitrite Negative Negative Urine Bilirubin Negative Negative Urine Urobilinogen Normal Negative mg/dL Urine Leukocyte Esterase Negative Negative /uL Urine RBC <1 0 - 4 /hpf Urine Microscopic WBC < 1 0-5 /HPF Urine Squamous Epithelial Cells None seen <5 /hpf Urine Bacteria None seen None Seen /hpf Urine Glucose Normal Normal mg/dL ABD PELVIC CT SCAN IMPRESSION: 1. Extensive cystic changes in the lung bases. Numerous bilateral renal angiomyolipoma. Largest renal mass is exophytic off the left lower pole johana suring up to 78 mm. 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 Clinical correlation and continued follow-up is recommended. Consider surgical resection of the largest mass due to risk of hemorrhage. 2. Likely hyperdense renal cysts greater in the left kidney. Consider further evaluation with MRI of the abdomen with contrast. 3. Subcentimeter fatty lesions in the liver, likely benign. Could also be further evaluated on MRI of the abdomen with contrast. Problems(with codes): (1) Abnormal finding on GI tract imaging (2) Constipation (3) Acute abdominal pain Plan/Recommendation Plan At this time I am going to advance diet as tolerated Maintain this patient on MiraLax or stool softeners as needed Monitor labs and check IBD panel I advised the patient that if inpatient colonoscopy is required I will be able to arrange that on 01/14/2025 If the patient is discharged home tomorrow then she can possibly be seen in my clinic to arrange outpatient elective colonoscopy Continue supportive care for now Plan discussed with: Patient DIGNA LEAL MD Jan 12, 2025 15:12
[2025-01-13 01:00] VITALS: BP 106/73; PULSE 66; RESP 18; TEMP 97.7; O2SAT 94
[2025-01-13 05:00] VITALS: BP 121/75; PULSE 60; RESP 18; TEMP 97.5; O2SAT 98
[2025-01-13] MEDS: METOCLOPRAMIDE HCL 5MG/ml INJ 2ml VIAL IV PRN (05:54)
[2025-01-13 08:00] VITALS: PULSE 61; RESP 18; O2SAT 99
[2025-01-13 09:00] VITALS: BP 97/59; PULSE 61; RESP 18; TEMP 98; O2SAT 99
--- NOTE | 2025-01-13 10:43 | DVHPN2 ---
Reviewed: Care Plan, H&P, Labs, Medications, Previous Orders, Radiology Changes from previous H/P or p: No Changes Eyes: No Pain, No Vision change, No Conjunctivae inflammation, No Eyelid inflammation, No Other, No Redness ENT: No Ear pain, No Ear discharge, No Nose pain, No Nose discharge, No Nose congestion, No Mouth pain, No Mouth swelling, No Throat pain, No Throat swelling, No Other Cardiovascular: No Chest Pain, No Palpitations, No Orthopnea, No Paroxysmal Noc. Dyspnea, No Edema, No Lt Headedness, No Other Respiratory: No Cough, No Dry, No Shortness of breath, No SOB with excertion, No Wheezing, No Hemoptysis, No Pleuritic Pain, No Sputum, No Other Gastrointestinal: No Nausea, No Vomiting; Abdominal Pain; No Diarrhea; C onstipation; No Melena, No Hematochezia, No Other Genitourinary: No Dysuria, No Frequency, No Incontinence, No Hematuria, No Retention, No Other Musculoskeletal: No other, No neck pain, No shoulder pain, No arm pain, No back pain, No hand pain, No leg pain, No foot pain Skin: No Rash, No Lesions, No Jaundice, No Bruising, No Other Objective Vitals Vital Signs Date Time Temp Pulse Resp B/P (MAP) Pulse Ox O2 Delivery O2 Flow Rate FiO2 01/13/25 09:00 98.0 61 18 97/59 (72) 99 98.0 01/13/25 08:00 Room Air* 0 21 Intake/Output Intake and Output 01/13/25 07:00 Intake Total 1690 ml Balance 1690 ml Intake Oral 1690 ml # Voids 9 # Bowel Movements 2 Medications Current Medications Medications Dose Ordered Sig/Mustapha Route Start Time Stop Time Status Last Admin Dose Admin Acetaminophen/ Hydrocodone Bitart 1 tab Q4HP PRN PO 01/11/25 15:15 01/13/25 04:14 1 TAB Ondansetron HCl 4 mg Q4HP PRN IV 01/11/25 15:15 01/12/25 02:01 4 MG Docusate Sodium 100 mg BIDPRN PRN PO 01/11/25 15:15 01/11/25 22:48 100 MG Acetaminophen 650 mg Q6HP PRN PO 01/11/25 15:15 01/12/25 16:52 650 MG Patient Own Medication 1 tab DAILY PO 01/12/25 10:00 UNV Magnesium Oxide 400 mg DAILY PO 01/12/25 10:00 01/13/25 10:04 400 MG Metoclopramide HCl 10 mg Q8HPRN PRN IV 01/11/25 22:00 01/13/25 05:54 10 MG Divalproex Sodium 500 mg BID PO 01/12/25 10:00 01/13/25 10:04 500 MG Laboratory Results Laboratory Tests 01/12/25 06:13 Urinalysis Test 01/11/25 13:50 Urine Color Light-yellow (Yellow) Urine Clarity Clear (Clear) Urine pH 6.0 (5.0-9.0) Urine Specific [place] 1.016 (1.001-1.035) Urine Protein Negative (Negative) Urine Ketones Negative (Negative) Urine Blood Negative /uL (Negative) Urine Nitrite Negative (Negative) Urine Bilirubin Negative (Negative) Urine Urobilinogen Normal mg/dL (Negative) Urine Leukocyte Esterase Negative /uL (Negative) Urine RBC <1 /hpf (0 - 4) Urine Microscopic WBC < 1 /HPF (0-5) Urine Squamous Epithelial Cells None seen /hpf (<5) Urine Bacteria None seen /hpf (None Seen) Urine Glucose Normal mg/dL (Normal) Labs and/or images reviewed: Labs reviewed by me, Image(s) reviewed by me Assessment/Plan Assessment/Plan Constipation: Colace Consult for GI Dr. Carlo Deshpande tuberous sclerosis, Seizures Depakote, Patient has had good bowel movement and wants to go home and get colonoscopy as an outpatient Plan discussed with: Patient My Orders Orders - NORA LUNDBERG MD Procedure Category Date Status Time * [facility] Manager Of Revenue CONS 01/12/25 Transmitted 12:56 Date of Service: Jan 13, 2025 Billing Provider: NORA LUNDBERG MD Common Visit Codes: [id number] INP/OBS CARE(HIGH) NORA LUNDBERG MD Jan 13, 2025 10:43
--- NOTE | 2025-01-13 10:47 | DVHDS2 ---
Discharge Summary Date of Admission Jan 11, 2025 at 15:02 Date of Discharge: Jan 13, 2025 Admitting Diagnosis Constipation Wounds: None Labs/Diagnostic Data: Laboratory Results Test 01/13/25 05:52 01/12/25 06:13 01/11/25 13:50 White Blood Count 4.5 10^3/uL (4.4-10.8) Red Blood Count 4.45 10^6/uL (4.0-5.20) Hemoglobin 14.6 g/dL (12.2-16.2) Hematocrit 41.9 % (36.0-46.0) Mean Corpuscular Volume 94.0 fL (80.0-100.0) Mean Corpuscular Hemoglobin 32.9 pg (28.0-32.0) Mean Corpuscular Hemoglobin Concent 35.0 g/dL (32.0-36.0) Red Cell Distribution Width 12.4 % (11.8-14.3) Platelet Count 244 10^3/uL (140-450) Mean Platelet Volume 8.8 fL (6.9-10.8) Neutrophils (%) (Auto) 46.1 % (37.0-80.0) Lymphocytes (%) (Auto) 43.1 % (10.0-50.0) Monocytes (%) (Auto) 7.3 % (0.0-12.0) Eosinophils (%) (Auto) 2.7 % (0.0-7.0) Basophils (%) (Auto) 0.8 % (0.0-2.0) Neutrophils # (Auto) 2.0 10 ^3/uL (1.6-8.6) Lymphocytes # (Auto) 1.9 10 ^3/uL (0.4-5.4) Monocytes # (Auto) 0.3 10 ^3/uL (0-1.3) Eosinophils # (Auto) 0.1 10 ^3/uL (0-0.8) Basophils # (Auto) 0 10 ^3/uL (0-0.2) Nucleated Red Blood Cells 0.2 % Sodium Level 139 mmol/L (136-145) Potassium Level 4.4 mmol/L (3.5-5.1) Chloride Level 107 mmol/L (98-107) Carbon Dioxide Level 24 mmol/L (20-31) Anion Gap 8 (5-15) Blood Urea Nitrogen 14 mg/dL (9-23) Creatinine 1.07 mg/dL (0.550-1.02) Glomerular Filtration Rate Calc 64 mL/min (>90) BUN/Creatinine Ratio 13.1 (10.0-20.0) Serum Glucose 86 mg/dL (74-106) Calcium Level 10.4 mg/dL (8.7-10.4) Total Bilirubin 0.6 mg/dL (0.2-1.0) Aspartate Amino Transferase (AST) 15 U/L (<34) Alanine Aminotransferase (ALT) 10 U/L (7-40) Alkaline Phosphatase 99 U/L (46-116) Total Protein 7.0 g/dL (5.7-8.2) Albumin 4.5 g/dL (3.2-4.8) Hepatitis B Surface Antigen Negative (Negative) Hepatitis C Antibody Negative (Negative) Urine Color Light-yellow (Yellow) Urine Clarity Clear (Clear) Urine pH 6.0 (5.0-9.0) Urine Specific [place] 1.016 (1.001-1.035) Urine Protein Negative (Negative) Urine Ketones Negative (Negative) Urine Blood Negative /uL (Negative) Urine Nitrite Negative (Negative) Urine Bilirubin Negative (Negative) Urine Urobilinogen Normal mg/dL (Negative) Urine Leukocyte Esterase Negative /uL (Negative) Urine RBC <1 /hpf (0 - 4) Urine Microscopic WBC < 1 /HPF (0-5) Urine Squamous Epithelial Cells None seen /hpf (<5) Urine Bacteria None seen /hpf (None Seen) Urine Glucose Normal mg/dL (Normal) Other Laboratory Tests 01/12/25 06:13 Brief Hx & Hospital Course: 49-year-old female with a history of tuberous sclerosis and seizures admitted for constipation. Constipation relieved by Fleet enema glycerin suppository CT abdomen pelvis without contrast showed constipation. Seen by GI Dr. Carlo Deshpande and advised outpatient colonoscopy. The patient feels better and wants to go home. She says she does not need any medications for constipation she will follow up with Dr. Deshpande in 10 days for outpatient colonoscopy Consults/Reason for consult GI Dr. Carlo Deshpande Operations or Procedures CT abdomen pelvis without contrast Condition at Discharge: Fair Final Diagnosis/Problems List Constipation: Colace Consult for GI Dr. Carlo Deshpande tuberous sclerosis, Seizures Depakote, Discharge Disposition: Home Discharge Instruct/Medications Diet: Regular Activity: Light activity Follow Up/Referral: Follow up with GI Dr. Carlo Deshpande in 10 days for outpatient colonoscopy Medications: none 35 (Time taken for discharge summary 35 minutes) Discharge Statement: "Patient was advised to return to the ER or call 911 if any headaches, dizziness, shortness of breath, chest pain, abdominal pain, bleeding, fevers, or worsening of medical condition. Patient was counseled about treatment plan, medications, possible side effects, patientverbalized understanding. All questions were answered to the best of my ability. This discharge took greater then 30 minutes in planning, reviewing documentation, counseling the patient, and discussing with other team members." ASSESSMENT ASSESSMENT Hospital Course Uneventful Assessment Constipation: Colace Consult for GI Dr. Carlo Deshpande tub[facility] sclerosis[facility] Date of Service: Jan 13, 2025 Billing Provider: NORA LUNDBERG MD Common Visit Codes: [id number] DISCH DAY >30min NORA LUNDBERG MD Jan 13, 2025 10:47
--- NOTE | 2025-01-13 16:17 | DVHPN2 ---
Progress Note Date Seen: Jan 13, 2025 Resident Creating Document: ALIYAH WOODWARD Medical Necessity Reason Pt with a Central, PICC or Fol: No Subjective Review of Systems Patient was seen today at bedside Patient had several bowel movement yesterday Did not acute Patient is being discharged today Objective vital signs Vital Sign Date Time Temp Pulse Resp B/P (MAP) Pulse Ox O2 Delivery O2 Flow Rate FiO2 01/13/25 09:00 98.0 61 18 97/59 (72) 99 98.0 01/13/25 08:00 Room Air* 0 21 Total Intake and Output 01/12/25 01/12/25 01/13/25 15:00 23:00 07:00 Intake Total 1240 ml 450 ml Balance 1240 ml 450 ml medications Current Medications Medications Dose Ordered Sig/Mustapha Route Start Time Stop Time Status Last Admin Dose Admin Patient Own Medication 1 tab DAILY PO 01/12/25 10:00 UNV laboratory and microbiology Laboratory Tests 01/12/25 06:13 Test 01/12/25 06:13 Range/Units Serum Glucose 86 74-106 mg/dL Problem List/Assessment/Plan Problem List/Assessment/Plan Assessment and plan Acute abdominal pain Abnormal finding on GI tract imaging Constipation Events Patient had several bowel movement yesterday Did not acute Patient is being discharged today Plan Patient is cleared to be discharged Patient was advised to follow up with trade promotion analyst Dr. Deshpande as an outpatient for colonoscopy Maintain adequate hydration High-fiber continng diet Plan discussed with Dr. Catherine Deshpande , nursing staff, Total time spent on patient evaluation, chart review, assessment and plan, discussion discussion >35 minutes Plan discussed with: Patient, Other (RN) ALIYAH WOODWARD Jan 13, 2025 16:17
[2025-01-17 12:07] LABS: Saccharomyces cerevisiae IgA <20.0 Units (0.0-24.9)
== END 2025-01-13 14:15 | disposition home or self-care (01) | DRG 247 ==
LOC: ER 09:19 → OVERFLOW 15:02 → EAST 01-12 03:00
PROVIDERS: ADMIT Family Medicine; ATTEND Family Medicine
DX: K56.41 Fecal impaction (principal); Q85.1 Tuberous sclerosis; R56.9 Unspecified convulsions; Z90.710 Acquired absence of both cervix and uterus; Z88.6 Allergy status to analgesic agent; Z88.5 Allergy status to narcotic agent; Z87.891 Personal history of nicotine dependence; Z83.79 Family history of other diseases of the digestive system; Z80.3 Family history of malignant neoplasm of breast; Z80.1 Family history of malignant neoplasm of trachea, bronchus and lung
CPT/HCPCS: 36415; 74176; 80048; 80053; 81001; 85025; 86256; 86671; 86803; 87340; 96361; 96374; G0378; J2405